=== PATIENT | male | born 1955 | race African-American/Black ===

== ENCOUNTER 2018-12-04 06:24 | Emergency (ER) | payer MEDICAID, OTHER ==
[~2018-12-04] VITALS: Ht 172.7 cm; Wt 65.0 kg
[2018-12-04 06:50] VITALS: BP 134/88
[2018-12-04] MEDS ORDERED: ACETAMINOPHEN 500MG TABLET PO ONE (07:15)
[2018-12-04] MEDS ORDERED: KETOROLAC 60MG/2ML VIAL IM ONE (07:15)
[2018-12-04] MEDS ORDERED: ONDANSETRON 4MG ODT PO ONE (07:45)
[2018-12-04] MEDS ORDERED: MORPHINE SULFATE 10 MG/ML CPJ IM ONE (07:45)
== END 2018-12-04 08:20 | disposition home or self-care (01) ==
LOC: ER 06:59
DX: G89.29 Other chronic pain (principal); M54.5 Low back pain; I10 Essential (primary) hypertension; F17.210 Nicotine dependence, cigarettes, uncomplicated; Z88.8 Allergy status to other drugs, medicaments and biological substances; V03.90XA Pedestrian on foot injured in collision with car, pick-up truck or van, unspecified whether traffic or nontraffic accident, initial encounter; Y93.89 Activity, other specified; Y92.488 Other paved roadways as the place of occurrence of the external cause
CPT/HCPCS: 96372; 99283; J1885; Q0162